=== PATIENT | female | born 1965 | race African-American/Black ===

== ENCOUNTER 2016-04-18 09:18 | Observation (INO) | payer OTHER ==
[~2016-04-18] VITALS: Ht 152.4 cm; Wt 85.0 kg
[~2016-04-18 09:18] MED LIST: ADVAIR 250/501 DISK IH; ASPIR 8181 M1 PO; ASPIR-TRIN325 M1 PO; ASPIRIN325 MG PO; BENICAR20 MG PO; BENICAR40 MG PO; CORICIDIN HBP1 EACH PO; DIABETA5 MG PO; Ecotrin PO; GLIPIZIDE5 MG PO; GLUCOPHAGE1000 MG PO; GLUCOPHAGE500 MG PO; GLUCOTROL5 MG PO; GLYBURIDE5 MG PO; Glucophage PO; Glucotrol PO; HYDROCODON-ACE1 EAC7 PO; HYDROCODON-ACE1 EACH PO; K-DUR10 ME2 PO; LANTUS (UNITS)1 UNIT SC; LANTUS 3 M100 UNITS/ SC; LEVEMIR FL100 UNIT/1 SC; LOW DOSE ASPIRI81 M2 PO; NICODERM CQ1 EAC2 TD; NOVOLOG100 UNIT/2 SQ; PROAIR HFA8.5 GM IH; PROMETHAZINE HC25 M1 PO; Proventil,Ventolin H IH; Robitussin AC,Tussi- PO; SPIRIVA1 INHALATI IH; TRAMADOL HCL50 MG PO; VENTOLIN HFA18 GM IH; ZITHROMAX500 MG PO; Zithromax PO; predniSONE PO
[2016-04-18 09:49] LABS: HEMATOCRIT 37.5 % (36.0-46.0); MCH 29.6 PG (29.0-34.0); MCHC 33.6 G/DL (30.0-36.0); MCV 88.2 FL (83-99); PLATELET COUNT 292 K/uL (156-360); RBC DIS.WIDTH-CV 14.5 % (11.8-14.6); RBC DIS.WIDTH-SD 46.3 % (39-53); RED BLOOD COUNT 4.25 M/uL (3.80-5.20); WHITE BLOOD COUNT 12.1 K/uL (4.1-10.2)
[2016-04-18 10:06] LABS: CHLORIDE 102 mEq/L (99-109); POTASSIUM 4.5 mEq/L (3.7-5.4); SODIUM 136 mEq/L (136-147)
[2016-04-18 10:07] LABS: GLUCOSE 373 mg/dL (70-99)
[2016-04-18 10:09] LABS: ANION GAP 14 MEQ/L (2-14)
[2016-04-18 10:12] LABS: TROP-I INTERPRETATION NEGATIVE; TROPONIN-I < 0.01 ng/mL (0.0-0.30); UREA NITROGEN (BUN) 18 mg/dL (9-23)
[2016-04-18 10:33] LABS: GFR ESTIMATE (CALCULATED) > 59 mL/min/
[2016-04-18 10:52] LABS: INFLUENZA A VIRAL ANTIGEN NEGATIVE; INFLUENZA B VIRAL ANTIGEN NEGATIVE
[2016-04-18 12:41] LABS: D-DIMER ELISA 0.31 mg/L FEU (< 0.57)
[2016-04-18] MEDS ORDERED: LO-DOSE ASPIRIN81 M2 PO (12:59)
[2016-04-18] MEDS ORDERED: DIABETA5 MG PO (13:00)
[2016-04-18] MEDS ORDERED: ZANAFLEX4 M1 PO (13:01)
[2016-04-18] MEDS ORDERED: NEURONTIN300 MG PO (13:01)
[2016-04-18] MEDS ORDERED: LEVEMIR100 UNIT/2 SC (13:03)
[2016-04-18 14:05] LABS: POINT-OF-CARE METER ID UU13113700
[2016-04-18 14:50] VITALS: BP 128/84
[2016-04-18 15:50] VITALS: BP 159/87
[2016-04-18 16:02] LABS: TROP-I INTERPRETATION NEGATIVE; TROPONIN-I < 0.01 ng/mL (0.0-0.30)
[2016-04-18 17:25] LABS: POINT-OF-CARE METER ID UU14162513
[2016-04-18 19:20] VITALS: BP 168/92
[2016-04-18 21:10] LABS: POINT-OF-CARE METER ID UU13113700
[2016-04-18 22:05] LABS: TROP-I INTERPRETATION NEGATIVE; TROPONIN-I 0.02 ng/mL (0.0-0.30)
[2016-04-19 00:30] VITALS: BP 142/88
[2016-04-19 04:10] VITALS: BP 138/84
[2016-04-19 06:33] LABS: ANION GAP 8 MEQ/L (2-14); CHLORIDE 106 MEQ/L (99-109); GFR ESTIMATE (CALCULATED) > 59 mL/min/; SAMPLE HEMOLYSIS CHECK 0; SAMPLE ICTERIC CHECK 0; SAMPLE LIPEMIA CHECK 0; SODIUM 139 MEQ/L (136-147); UREA NITROGEN (BUN) 20 mg/dL (9-23)
[2016-04-19 06:36] LABS: GLUCOSE 151 mg/dL (70-99)
[2016-04-19 06:42] LABS: HEMATOCRIT 35.8 % (36.0-46.0); MCH 28.4 PG (29.0-34.0); MCHC 32.1 G/DL (30.0-36.0); MCV 88.4 FL (83-99); MEAN PLAT.VOLUME 9.9 uM^3 (9.5-12.4); PLATELET COUNT 237 K/uL (156-360); RBC DIS.WIDTH-CV 14.4 % (11.8-14.6); RBC DIS.WIDTH-SD 46.6 % (39-53); RED BLOOD COUNT 4.05 M/uL (3.80-5.20)
[2016-04-19 06:43] LABS: WHITE BLOOD COUNT 8.2 K/uL (4.1-10.2)
[2016-04-19] MEDS ORDERED: MUCINEX600 MG PO (09:04)
[2016-04-19] MEDS ORDERED: NITROSTAT0.4 MG SL (09:04)
[2016-04-19 09:45] VITALS: BP 136/83
[2016-04-19] MEDS ORDERED: VENTOLIN HFA18 GM IH (10:06)
[2016-04-19 12:14] VITALS: BP 100/59
[2016-04-19 15:52] VITALS: BP 105/77
[2016-04-19 20:12] VITALS: BP 157/96
[2016-04-20 00:25] VITALS: BP 103/71
[2016-04-20 05:15] VITALS: BP 103/54
[2016-04-20 08:08] LABS: POINT-OF-CARE METER ID UU13113700
[2016-04-20 08:26] LABS: POINT-OF-CARE METER ID UU13113831
[2016-04-20 08:30] VITALS: BP 145/95
[2016-04-20 09:21] LABS: POINT-OF-CARE METER ID UU13113831
[2016-04-20] MEDS ORDERED: FLONASE SENSIM9.9 ML BOTH NARES (11:55)
[2016-04-20] MEDS ORDERED: PREDNISONE10 MG PO (11:58)
[2016-04-20] MEDS ORDERED: LEVEMIR100 UNIT/2 SC (12:05)
[2016-04-20] MEDS ORDERED: NOVOLOG 10100 UNITS/ SC (12:20)
[2016-04-20 12:28] VITALS: BP 151/68
[2016-04-20 14:20] LABS: POINT-OF-CARE METER ID UU13113700
== END 2016-04-20 14:04 | disposition home or self-care (01) ==
LOC: EME 09:18 → EDOF 12:00 → 5WEST 12:00
PROVIDERS: Emergency Medicine; Hospitalist; Internal Medicine; Student in an Organized Health Care Education/Training Program
DX: J20.9 Acute bronchitis, unspecified (principal); R07.89 Other chest pain; E11.65 Type 2 diabetes mellitus with hyperglycemia; T38.0X5A Adverse effect of glucocorticoids and synthetic analogues, initial encounter; I10 Essential (primary) hypertension; R51 Headache; F17.210 Nicotine dependence, cigarettes, uncomplicated; E66.01 Morbid (severe) obesity due to excess calories; Z79.4 Long term (current) use of insulin; G89.4 Chronic pain syndrome; M19.90 Unspecified osteoarthritis, unspecified site
CPT/HCPCS: 70450; 71020; 80048; 81003; 82948; 84484; 85027; 85379; 87502; 93005; 94640; 94640 76; 94644; 99202; 99281; 99285; G0378; J1200; J1650; J1815; J1885; J2270; J2765; J2920; J7030; J7512